=== PATIENT | male | born 1970 | race African-American/Black ===

== ENCOUNTER 2024-08-11 07:42 | Emergency (ER) | payer OTHER ==
[~2024-08-11] VITALS: Ht 193 cm; Wt 111.0 kg
[2024-08-11 08:06] VITALS: O2SAT 100
[2024-08-11] MEDS: KETOROLAC 30MG/ML VIAL IM ONE (08:49)
[2024-08-11] MEDS: CYCLOBENZAPRINE 10MG TABLET PO ONE (08:50)
[2024-08-11 09:15] VITALS: BP 142/76; PULSE 84; RESP 18; TEMP 37.05852; O2SAT 100
== END 2024-08-11 09:15 | disposition home or self-care (01) ==
LOC: ER 07:42
DX: M54.12 Radiculopathy, cervical region (principal)
CPT/HCPCS: 99283; 96372; J1885